=== PATIENT | male | born 2005 | race Caucasian/White ===

== ENCOUNTER 2023-10-17 20:14 | Emergency (ER) | payer BC, SELFPAY ==
[2023-10-17 20:14] VITALS: BMI 32.0
[2023-10-17 20:16] VITALS: BP 177/88
[2023-10-17 21:00] VITALS: BP 134/67
[2023-10-17 21:39] LABS: Urine Albumin Negative (Neg - Trace); Urine Bilirubin Negative (Negative); Urine Character Clear (Clear); Urine Color Yellow; Urine Glucose Negative (Negative); Urine Ketone Negative (Negative); Urine Leukocyte Negative (Negative); Urine Nitrite Negative (Negative); Urine Occult Blood Negative (Negative); Urine Specific Gravity 1.015 (<1.030); Urine Urobilinogen Negative (Neg - 1+)
--- NOTE | 2023-10-17 21:46 | ED.GENMED ---
History of Present Illness
General
Chief Complaint: Male Genito-Urinary Symptoms
Time Seen by Provider: 10/17/23 20:45
History of Present Illness
History of Present Illness:
18-year-old male presents to the emergency department for evaluation of right testicular pain that began approximate 4 hours ago. Began in mild fashion gradually worsened. Denies any recent trauma or intercourse. Denies recent masturbation.
Denies penile discharge abdominal pain. No concern for STIs
Past History
Social History
Tobacco: Non-smoker
Alcohol: None
Drug: None
Review of Systems
Review of Systems
Allergies reviewed?: Yes
All Other Systems: ROS reviewed and negative except as documented in HPI and ROS
Phy Exam
Physical Exam
Physical Exam:
GEN: Well appearing, NAD, WDWN
HEENT: Oral mucosa moist, no scleral icterus
Cardiac: Regular rate
Lung: No respiratory distress, no tachypnea
MSK: No gross deformity or injuries
: Circumcised, normal scrotal lie bilaterally. Tenderness to the right epididymal head with no obvious swelling or mass,
Skin: Good color, no pallor or jaundice, no rashes
Neuro: AO x3, moves all extremities freely
Psych: Calm, cooperative
Course
Orders/Labs/Results
Orders:
Orders
10/17/23 20:20
Scrotum US [US Scrotum] Urgent
Comment:
Reason For Exam: right testicle pain starting 4 hours ago
10/17/23 21:29
Urinalysis Reflex To Culture Urgent
Date Specimen was Collected: 10/17/23
Time Specimen was Collected: 21:25
Chlamydia/GC by PCR Urgent
EUGENIE Source: Urine
Specimen Description:
Source:: URINE
Date Specimen was Collected: 10/17/23
Time Specimen was Collected: 21:25
10/17/23 21:31
Sulfamethox./Trimethoprim Ds [Bactrim Ds 800 mg/160 mg] 1 tablet PO NOW STA
Vital Signs
Initial and Last Documented VS:
Initial Vital Signs
Temp Pulse Resp BP Pulse Ox
99 F 84 18 177/88 97
10/17/23 20:16 10/17/23 20:16 10/17/23 20:16 10/17/23 20:16 10/17/23 20:16
Last Documented Vital Signs
Temp Pulse Resp BP Pulse Ox
99 F 74 18 134/67 99
10/17/23 20:16 10/17/23 21:00 10/17/23 21:00 10/17/23 21:00 10/17/23 21:00
MDM/Problems Addressed
MDM/Problems Addressed:
Exam and ultrasound consistent with epididymitis. He has no concern for STIs nevertheless we will send GC chlamydia for completeness. Will start the patient empirically on Bactrim
*Critical Care Note
Total Time (30-74mins, 75-104mins- exclusive of procedures): Not Applicable
ED Attending Note
-
Portions of this chart may have been created with voice recognition software.� Occasional wrong word or��sound alike� substitutions may have occurred due to the inherent limitations of voice recognition software.
Discharge Plan
Departure
Patient Disposition: Home (Routine Discharge)
Date of Disposition: 10/17/23
Time of Disposition: 21:46
Patient with high blood pressure during this ER visit?: No
Discharge Problem:
Acute epididymitis
Instructions: Epididymitis and Orchitis
Prescriptions:
New
sulfamethoxazole-trimethoprim [Bactrim DS] 800-160 mg tablet
1 tab PO BID Qty: 19 0RF
No Action
amoxicillin-pot clavulanate 1 TABLET tablet
1 tab PO Q12 Qty: 19 0RF
prednisone 50 MG tablet
50 mg PO DAILY Qty: 5 0RF
cyclobenzaprine 10 MG tablet
10 mg PO TIDPRN PRN (Reason: pain) Qty: 12 0RF
Referrals:
Shiv Atkins DO [Family Provider] -
Interventions
Interventions:
*Risk Screen - Suicide Last Done: 10/17/23 21:11
*General Assessment Last Done: 10/17/23 21:13
*Neglect/Abuse Screening Last Done: 10/17/23 21:11
ED- Fall Risk Assessment Last Done: 10/17/23 21:11
*Nursing Disposition Last Done: 10/17/23 22:08
ED-Male Genitourinary Assessment Last Done: 10/17/23 21:13
Discharge Date and Time
Discharge Date/Time: 10/17/23 22:09
Print Language: STATELESS
[2023-10-17] MEDS: BACTRIM DS 800 MG/160 MG 1 TABLET PO (21:55)
== END 2023-10-17 22:09 | disposition home or self-care (01) ==
LOC: EMR 20:14
PROVIDERS: Physician Assistant; EMERGENCY PHYSICIAN Emergency Medicine; FAMILY PHYSICIAN Family Medicine
DX: N45.1 Epididymitis (principal)
CPT/HCPCS: 99284; 76870; 81003; 87491; 87591; 93976

== ENCOUNTER 2024-07-05 11:34 | Emergency (ER) | payer BC, SELFPAY ==
[2024-07-05 11:39] VITALS: BP 153/87
[2024-07-05 11:51] VITALS: BMI 27.3
--- NOTE | 2024-07-05 12:35 | ED.GENMED ---
History of Present Illness
General
Chief Complaint: Skin Problem
Source: patient
Exam Limitations: none
Time Seen by Provider: 07/05/24 12:07
Nursing documentation reviewed up to this point in time: agreed with
History of Present Illness
History of Present Illness:
19-year-old male presents to the ER for evaluation. He was slicing a steel bagel with a knife last night and the knife slipped and he sustained a laceration to his right index finger . He reports he wanted to make sure he did not injure the bone.
He tried to get the bleeding to stop with cornstarch which she looked up online. He is here for evaluation. He is left-hand dominant. His last tetanus was 10 days ago. He does complain of soreness to the area
Past History
Social History
Tobacco: Non-smoker
Alcohol: None
Drug: None
Review of Systems
Review of Systems
Allergies reviewed?: Yes
All Other Systems: ROS reviewed and negative except as documented in HPI and ROS
Constitutional: Reports no symptoms; Denies fever, fatigue or chills
Respiratory: Reports no symptoms
Cardiac: Reports no symptoms
ABD/GI: Reports no symptoms
Musculoskeletal: Reports other (right index finger laceration)
Skin: Reports other (see above )
Neurological: Reports no symptoms
Psychiatric: Reports no symptoms
Phy Exam
General Physical Exam
General Presentation: no apparent distress
General age: appears stated age
General Skin: warm and dry
General Habitus: normal
General Mental: alert
Neurological Exam
Neurological Exam: alert and oriented x3
Musculoskeletal Exam
Musculoskeletal Exam: other (Right index finge with approximately 2 centimeter partial-thickness laceration to middle phalanx of right index finger no bony tenderness able to flex extend no active bleeding right next ear appears very minimally
swollen and very minimally red(patient reports he had it dressed very tightly))
Skin Exam
Skin Exam: normal color and warm/dry
Psychiatric Exam
Psychiatric Exam: normal mood/affect
Course
Orders/Labs/Results
Orders:
Orders
07/05/24 12:36
Finger(s)/Thumb 2 View Rt [CR Finger(s)/thumb Min 2 Vw Rt] Urgent
Comment:
Reason For Exam: trauma
07/05/24 12:37
Cephalexin Monohydrate [Keflex] 500 mg PO NOW STA
Vital Signs
Initial and Last Documented VS:
Initial Vital Signs
Temp Pulse Resp BP Pulse Ox
98.2 F 94 18 153/87 100
07/05/24 11:39 07/05/24 11:39 07/05/24 11:39 07/05/24 11:39 07/05/24 11:39
Last Documented Vital Signs
Temp Pulse Resp BP Pulse Ox
98.2 F 79 16 147/94 100
07/05/24 11:39 07/05/24 13:37 07/05/24 13:37 07/05/24 13:37 07/05/24 11:39
MDM/Problems Addressed
Differential Diagnosis Includes:
not limited to: finger laceration, infection, less likely bony injury
MDM/Problems Addressed:
Patient sustained a wound last night to his right
Her leg does not require repair. He used cornstarch to stop the bleeding and was concerned and wanted to make sure he did not nicked the bone. He denies any actual pain. 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
not require repair full flexion extension normal sensation. He is very minimally swelling and very minimally red to the dorsal PIP joint he reports he wrapped this very tightly throughout the night. Does not necessarily appear infected however
with very minimal redness will give Keflex for the next 5 days will check x-ray to rule out no bony fracture though unlikely
*Radiology
Radiology exam reviewed: radiology read reviewed
*Pulse Oximetry
Patient hypoxic: no
*Critical Care Note
Total Time (30-74mins, 75-104mins- exclusive of procedures): Not Applicable
ED Attending Note
-
Portions of this chart may have been created with voice recognition software.� Occasional wrong word or��sound alike� substitutions may have occurred due to the inherent limitations of voice recognition software.
Discharge Plan
Departure
Patient Disposition: Home (Routine Discharge)
Date of Disposition: 07/05/24
Time of Disposition: 13:27
Patient with high blood pressure during this ER visit?: Yes
Condition: Fair
Covid-19: Not Applicable
Discharge Problem:
Finger laceration
Instructions: BLOOD PRESSURE, Laceration
Prescriptions:
New
cephalexin 500 mg capsule
500 mg PO Q6H Qty: 28 0RF
No Action
amoxicillin-pot clavulanate 1 TABLET tablet
1 tab PO Q12 Qty: 19 0RF
prednisone 50 MG tablet
50 mg PO DAILY Qty: 5 0RF
cyclobenzaprine 10 MG tablet
10 mg PO TIDPRN PRN (Reason: pain) Qty: 12 0RF
sulfamethoxazole-trimethoprim [Bactrim DS] 800-160 mg tablet
1 tab PO BID Qty: 19 0RF
Referrals:
Shiv Atkins DO [Family Provider] -
Activity Restrictions/Additional Instructions:
As discussed wash with soap and water twice a day you may apply small or of antibiotic ointment and dressing. Wear splint for the next 24 hours to support healing. As discussed with very mild redness we will treat with antibiotics. You were given
the first dose here in the ER and a prescription was sent to pharmacy take as directed. Please look at this wound twice daily and return if any concerning signs infection including increasing redness swelling pain drainage red streaking fever
chills.
Follow-up with your family doctor the next 2 to 3 days for reevaluation return if any worsening of symptoms.
Interventions
Interventions:
*Risk Screen - Suicide Last Done: 07/05/24 11:39
*General Assessment Last Done: 07/05/24 11:39
*Neglect/Abuse Screening Last Done: 07/05/24 11:39
*ED COVID-19 Vaccine History Last Done: 07/05/24 11:51
*Nursing Disposition Last Done: 07/05/24 13:37
ED-Skin Assessment Last Done: 07/05/24 11:50
Discharge Date and Time
Discharge Date/Time: 07/05/24 13:39
Print Language: MONGOLIAN
[2024-07-05] MEDS: KEFLEX 500 MG PO (12:42)
[2024-07-05 13:37] VITALS: BP 147/94
== END 2024-07-05 13:39 | disposition home or self-care (01) ==
LOC: EMR 11:34
PROVIDERS: EMERGENCY PHYSICIAN Emergency Medicine; FAMILY PHYSICIAN Family Medicine
DX: S61.210A Laceration without foreign body of right index finger without damage to nail, initial encounter (principal); W26.0XXA Contact with knife, initial encounter
CPT/HCPCS: 99283; 73140

== ENCOUNTER → 2025-02-16 14:03 | Outpatient (REF) | payer BC, SELFPAY ==
[2025-02-16 15:39] LABS: Hematocrit 44.7 % (39.0-52.0); Hemoglobin 16.1 g/dL (13.0-18.0); Mean Corp Hgb Conc. 36.0 g/dL (33.0-37.0); Mean Corpuscular Volume 87.1 fL (80.0-94.0); Nucleated Red Blood Cells % 0 % (-); Platelet Count 306 10^3/uL (130-400); Red Cell Dist. Width 11.6 % (11.5-14.5)
[2025-02-16 15:58] LABS: ALT (SGPT) 32 U/L (0-50); AST (SGOT) 37 U/L (17-59); Albumin 5.0 g/dl (3.5-5.0); Alkaline Phosphatase 61 U/L (38-126); Blood Urea Nitrogen 16 mg/dl (9-20); Calcium 9.8 mg/dl (8.4-10.2); Carbon Dioxide 31 mmol/L (22-30); Chloride 97 mmol/L (98-107); Glucose 82 mg/dl (70-99); HDL Cholesterol 54 mg/dl; LDL Cholesterol, Calculated 106 mg/dl; Potassium 4.2 mmol/L (3.5-5.1); Sodium 137 mmol/L (135-145); Total Protein 8.0 g/dl (6.3-8.2); Very Low Density Lipoprotein 36 mg/dl (0-30); eGFR > 60.00
[2025-02-16 16:29] LABS: TSH 0.78 uIU/ml (0.47-4.68)
== END ==
LOC: REG 14:03
PROVIDERS: ATTENDING PHYSICIAN Nurse Practitioner Family; FAMILY PHYSICIAN Family Medicine
DX: Z00.00 Encounter for general adult medical examination without abnormal findings (principal)
CPT/HCPCS: 36415; 80053; 80061; 84443; 85025